=== PATIENT | female | born 1965 | race American Indian/Alaskan Native ===

== ENCOUNTER 2019-09-11 09:02 | Outpatient (CLI) | payer OTHER ==
--- NOTE | 2019-09-11 10:14 | Mammography Report ---
BILATERAL DIGITAL SCREENING MAMMOGRAM WITH CAD INDICATION: Routine screening mammography, status post bilateral breast surgery. TECHNIQUE: Digital bilateral 2D mammography was obtained in the craniocaudal and mediolateral obliq ue projections. This examination was interpreted with the benefit of Computer-Aided Detection analysi s. COMPARISON: None currently available, patient reports prior mammograms in 2018 at [facility]. FINDINGS: Breast Density: The breasts are heterogeneously dense, which may obscure small masses. Mild distortion in the left lateral posterior breast is noted. The appearance may reflect prior surgi hakeem change. Comparison to prior outside mammograms is recommended to assess stability. IMPRESSION: There is mild distortion in the left lateral posterior breast. This appearance may reflect prior surg ical change. Comparison with prior mammograms is recommended to assess stability. We will attempt to obtain prior mammograms for comparison. An addendum will be added to this report once prior images are received. I f we do not obtain a prior mammogram within 30 days, a revised report will be issued recommending a r ecall for additional imaging. Please be advised that the patient should not schedule an appointment f or return until adequate time (at least 2 weeks) has passed for us to obtain the prior mammogram. BI-RADS Category 0: Incomplete. Needs additional imaging evaluation and/or prior mammograms for filipe rison. A "normal" or negative report should not discourage follow up or biopsy of a clinically significant f inding. A written summary of these findings will be mailed to the patient. The patient will be entered into a mammography reporting system which will generate a reminder letter for the patient's next appointmen t at the appropriate interval. The [employer] recommends yearly mammograms starting at age 40 and continuing as l sujatha as a woman is in good health. Breast MRI is recommended for women with an approximate 20-25% or greater lifetime risk of breast cancer, including women with a strong family history of breast or ova jarad cancer or who have been treated for Hodgkin's disease. Signer Name: Talat Retana MD Signed: 09/11/2019 10:09 AM Workstation Name: [id number]
== END 2019-09-11 09:03 | disposition home or self-care (01) ==
LOC: SPVWC 09:02
PROVIDERS: ATTEND Internal Medicine
DX: Z12.31 Encounter for screening mammogram for malignant neoplasm of breast (principal); Z98.890 Other specified postprocedural states
CPT/HCPCS: 77067

== ENCOUNTER 2019-11-26 08:32 | Outpatient (CLI) | payer OTHER ==
--- NOTE | 2019-11-26 10:23 | Mammography Report ---
LEFT DIGITAL DIAGNOSTIC MAMMOGRAM WITH CAD 11/26/2019 LEFT LIMITED BREAST ULTRASOUND INDICATION: Recall to evaluate asymmetry and distortion. F/U abnormal mammogram TECHNIQUE: Digital left mammographic imaging was performed. Spot compression views were obtained. Li mited ultrasound was performed. This examination was interpreted with the benefit of Computer-Aided D etection (CAD) analysis. COMPARISON: 09/11/2019 FINDINGS: Breast Density: The breast is heterogeneously dense, which may obscure small masses. Partial effacement of asymmetry and distortion on spot images. ULTRASOUND FINDINGS: Targeted ultrasound evaluation was performed of the area of interest. Ultrasou nd of the upper outer left breast demonstrated but appears to be an island of probably benign fibrogl andular structures which correlate with the mammographic finding. IMPRESSION: Probably benign mammographic and ultrasound findings. Recommend 6 month follow-up mammogr am and left breast ultrasound. Follow up recommendation: Short term follow up in 6 months. BI-RADS Category 3: Probably Benign. Followup in 6 months. A "normal" or negative report should not discourage follow up or biopsy of a clinically significant f inding. A written summary of these findings will be mailed to the patient. The patient will be entered into a mammography reporting system which will generate a reminder letter for the patient's next appointmen t at the appropriate interval. According to the [employer], yearly mammograms are recommended starting at age 40 and continuing as long as a woman is in good health. Breast MRI is recommended for women with an wayne roximately 20-25% or greater lifetime risk of breast cancer, including women with a strong family his tory of breast or ovarian cancer and women who have been treated for Hodgkin's disease. Signer Name: Joe Jett MD Signed: 11/26/2019 10:19 AM Workstation Name: [id number]
== END 2019-11-26 08:33 | disposition home or self-care (01) ==
LOC: SPVWC 08:32
PROVIDERS: ATTEND Internal Medicine
DX: R92.8 Other abnormal and inconclusive findings on diagnostic imaging of breast (principal)

== ENCOUNTER 2020-08-24 10:43 | Outpatient (CLI) | payer OTHER ==
--- NOTE | 2020-08-24 11:19 | Mammography Report ---
DIGITAL DIAGNOSTIC MAMMOGRAM WITH CAD CONVENTIONAL, 08/24/2020 CLINICAL INFORMATION / INDICATION: Follow-up of left breast asymmetry. TECHNIQUE: Digital bilateral mammographic imaging was performed. This examination was interpreted with the benefit of Computer-aided Detection analysis. COMPARISON: 11/26/2019, 09/11/2019 FINDINGS: Breast Density: The breasts are heterogeneously dense, which may obscure small masses. No dominant mass, suspicious calcifications or architectural distortion in either breast. Asymmetric tissue in the upper outer left breast posterior depth is unchanged. IMPRESSION: No mammographic evidence of malignancy. Follow up recommendation: Back to schedule. BI-RADS Category 2: Benign. A "normal" or negative report should not discourage follow up or biopsy of a clinically significant f inding. A written summary of these findings will be mailed to the patient. The patient will be entered into a mammography reporting system which will generate a reminder letter for the patient's next appointmen t at the appropriate interval. According to the [employer], yearly mammograms are recommended starting at age 40 and continuing as long as a woman is in good health. Breast MRI is recommended for women with an wayne roximately 20-25% or greater lifetime risk of breast cancer, including women with a strong family his tory of breast or ovarian cancer and women who have been treated for Hodgkin's disease. Signer Name: Rome Key MD Signed: 08/24/2020 11:15 AM Workstation Name: [email or web address]
== END 2020-08-24 10:44 | disposition home or self-care (01) ==
LOC: SPVWC 10:43
DX: R92.8 Other abnormal and inconclusive findings on diagnostic imaging of breast (principal)
CPT/HCPCS: 77066

== ENCOUNTER 2021-07-04 12:54 | Outpatient (CLI) | payer OTHER ==
--- NOTE | 2021-07-05 17:10 | Mammography Report ---
DIGITAL SCREENING MAMMOGRAM WITH CAD, 07/04/2021 CLINICAL INFORMATION / INDICATION: Routine screening mammography. SCREENING MAMMO TECHNIQUE: Digital bilateral 2D mammography was obtained in the craniocaudal and mediolateral obliqu e projections. This examination was interpreted with the benefit of Computer-Aided Detection analysis . COMPARISON: 09/11/2019 FINDINGS: Breast Density: There are scattered areas of fibroglandular density. No dominant mass, suspicious calcifications, or architectural distortion in either breast. Stable asymmetric tissue in the left breast. Reduction change again noted. IMPRESSION: No mammographic evidence of malignancy. Follow up recommendation: Routine yearly BI-RADS Category 2: Benign. A "normal" or negative report should not discourage follow up or biopsy of a clinically significant f inding. A written summary of these findings will be mailed to the patient. The patient will be entered into a mammography reporting system which will generate a reminder letter for the patient's next appointmen t at the appropriate interval. The [employer] recommends yearly mammograms starting at age 40 and continuing as l sujatha as a woman is in good health. Breast MRI is recommended for women with an approximate 20-25% or greater lifetime risk of breast cancer, including women with a strong family history of breast or ova jarad cancer or who have been treated for Hodgkin's disease. Signer Name: Travis Mcpherson MD Signed: 07/05/2021 5:06 PM Workstation Name: [id number]
== END 2021-07-04 12:55 | disposition home or self-care (01) ==
LOC: SPVWC 12:54
PROVIDERS: ATTEND Internal Medicine
DX: Z12.31 Encounter for screening mammogram for malignant neoplasm of breast (principal)
CPT/HCPCS: 77067